=== PATIENT | male | born 1970 | race Caucasian/White ===

== ENCOUNTER 2016-12-29 01:43 | Emergency (ER) | payer OTHER ==
[2016-12-29 02:13] VITALS: BP 132/87; TEMP 97.9
--- NOTE | 2016-12-29 02:15 | C.PDOC ---
History Of Present Illness Patient presents to the emergency room with complaints of left ankle pain that started today. Patient reports that he may have sprained the left ankle while putting on a boot. Patient denies any other pain or any other complaints. Chief Complaint (Nursing): Lower Extremity Problem/Injury History Per: Patient History/Exam Limitations: no limitations Onset/Duration Of Symptoms: Hrs Current Symptoms Are (Timing): Still Present Severity: Mild Pain Scale Rating Of: 4 Recent travel outside of the [place]: No Past Medical History Reviewed: Historical Data, Nursing Documentation, Vital Signs Vital Signs: Last Vital Signs Temp 97.9 F 12/29/16 02:09 Pulse 78 12/29/16 02:09 Resp 14 12/29/16 02:09 BP 132/87 12/29/16 02:09 Pulse Ox 97 12/29/16 02:17 Family History: States: Unknown Family Hx - Social History Hx Alcohol Use: No Hx Substance Use: No - Immunization History Hx Tetanus Toxoid Vaccination: Yes Hx Influenza Vaccination: Yes Hx Pneumococcal Vaccination: Yes Review Of Systems Constitutional: Negative for: Fever, Chills Gastrointestinal: Negative for: Nausea, Vomiting, Diarrhea Musculoskeletal: Positive for: Foot Pain (Left ankle pain). Negative for: Leg Pain Neurological: Negative for: Weakness, Numbness Physical Exam - Physical Exam Appears: Non-toxic Skin: Warm, Dry Extremity: Normal ROM, Tenderness (Diffuse left ankle tenderness), Capillary Refill (Good cap refill < 2 sec), No Deformity, No Swelling Pulses: Left Dorsalis Pedis: Normal, Right Dorsalis Pedis: Normal Neurological/Psych: Oriented x3, Normal Speech Gait: Steady ED Course And Treatment O2 Sat by Pulse Oximetry: 97 Pulse Ox Interpretation: Normal Reevaluation Time: 03:45 Reassessment Condition: Improved Disposition Counseled Patient/Family Regarding: Studies Performed, Diagnosis, Need For Followup, Rx Given - Disposition Referrals: Manoj Arndt DPM [Staff Provider] - Disposition: HOME/ ROUTINE Disposition Time: 03:45 Condition: FAIR Additional Instructions: please use 800 mg motrin every 8 hours Instructions: Ankle Sprain (ED), Gout (ED) - Clinical Impression Clinical Impression: Joint pain, Ankle sprain, Gout - Scribe Statement The provider has reviewed the documentation as recorded by the Oscar Villafana Provider Scribe Attestation: All medical record entries made by the Scribe were at my direction and personally dictated by me. I have reviewed the chart and agree that the record accurately reflects my personal performance of the history, physical exam, medical decision making, and the department course for this patient. I have also personally directed, reviewed, and agree with the discharge instructions and disposition.
[2016-12-29 03:52] VITALS: PULSE 76; RESP 18; O2SAT 99
== END 2016-12-29 03:50 | disposition home or self-care (01) ==
LOC: C.ER 01:43
DX: S93.402A Sprain of unspecified ligament of left ankle, initial encounter (principal); X58.XXXA Exposure to other specified factors, initial encounter; M10.9 Gout, unspecified; M25.572 Pain in left ankle and joints of left foot

== ENCOUNTER 2017-05-16 22:28 | Emergency (ER) | payer OTHER ==
[2017-05-16 22:42] VITALS: BP 167/106; PULSE 88; RESP 20; TEMP 98.2; O2SAT 99
--- NOTE | 2017-05-16 23:02 | C.PDOC ---
History Of Present Illness 47 yo male w/o significant PMHx come in for evaluation of randomly found HTN early today. Otherwise, pt denies any active complaints, denies previous hx of HTN. Pt denies headache, dizziness, visual changes, focal deficits, neck pain, CP, SOB, dyspnea, diaphoresis, palpitation, abd. pain, N/V, denies edema. Ambulate to ED for evaluation, not in any apparent distress. (Carri Chun) History Per: Patient Time Seen by Provider: 05/16/17 22:44 Chief Complaint (Nursing): High Blood Pressure Past Medical History Reviewed: Historical Data, Nursing Documentation, Vital Signs - Medical History PMH: No Chronic Diseases Surgical History: No Surg Hx Family History: States: No Known Family Hx - Social History Hx Tobacco Use: Yes (occasional) Hx Alcohol Use: No Hx Substance Use: No - Immunization History Hx Tetanus Toxoid Vaccination: Yes Hx Influenza Vaccination: Yes Hx Pneumococcal Vaccination: Yes Vital Signs: Last Vital Signs Temp 98.2 F 05/16/17 22:39 Pulse 88 05/16/17 22:39 Resp 20 05/16/17 22:39 BP 167/106 H 05/16/17 22:39 Pulse Ox 99 05/17/17 00:27 Review Of Systems Except As Marked, All Systems Reviewed And Found Negative. Constitutional: Negative for: Fever, Chills Eyes: Negative for: Vision Change ENT: Negative for: Throat Pain Cardiovascular: Negative for: Chest Pain, Palpitations, Orthopnea, Paroxysmal Noc. Dyspnea, Edema, Light Headedness Respiratory: Negative for: Cough, Shortness of Breath, SOB with Excertion, Pleuritic Pain, Wheezing Gastrointestinal: Negative for: Nausea, Vomiting, Abdominal Pain, Diarrhea Genitourinary: Negative for: Dysuria, Incontinence Musculoskeletal: Negative for: Neck Pain, Back Pain Skin: Negative for: Rash Neurological: Negative for: Weakness, Numbness, Altered Mental Status, Headache , Dizziness Physical Exam - Physical Exam Appears: Well, No Acute Distress Skin: Normal Color, Warm, Dry, No Rash Head: Atraumatic, Normacephalic Eye(s): bilateral: PERRL Nose: No Flaring, No Discharge Oral Mucosa: Moist, No Drooling Throat: No Erythema, No Exudate, No Drooling Neck: Supple, Other ((-) carotid bruits) Cardiovascular: Rhythm Regular, No Friction Rub, No Murmur, No JVD Respiratory: No Decreased Breath Sounds, No Accessory Muscle Use, No Rales, No Rhonchi, No Stridor, No Wheezing Gastrointestinal/Abdominal: Soft, No Tenderness, No Distention, No Guarding Back: No CVA Tenderness, No Vertebral Tenderness Extremity: No Pedal Edema, No Deformity, No Swelling Neurological/Psych: Oriented x3, Normal Speech, Normal Motor, Normal Sensation, Normal Reflexes ED Course And Treatment ECG: Interpreted By Me, Viewed By Me Interpretation Of ECG: SR@77/min, LAD, T wave inversion in III, AVF, no acute ST -T changes. No old study available. O2 Sat by Pulse Oximetry: 99 Pulse Ox Interpretation: Normal - Radiology CXR: Interpreted by Me, Viewed By Me CXR Interpretation: Yes: No Acute Disease Progress Note: Case discussed with ED attending , results review. Recommed Rx: HCTZ and outpt f/u. On re-eavluation, pt is afebrile, hemodynamicaly stable. NOn-toxic. PulseOx 99% rA. neck: Supple, (-) JVD, (-) carotid bruits. Lungs: CTA B/L, BS equal B/L. CVS: (+)S1S2, reg. Abd: benign. Neuorlogical yintact. CXR, EKG review- normal study. Pt has clinical findings c/w HTN, asymptomatic. Pt advised and ref. to f/u with PMD in 2-3 days for re-eavl. return if any new changes. Disposition Counseled Patient/Family Regarding: Diagnosis, Need For Followup, Rx Given - Disposition Disposition Time: 00:01 - Disposition Referrals: [facility] [Outside] Renee Puga MD [Staff Provider] - Disposition: HOME/ ROUTINE Condition: STABLE Additional Instructions: Take medication as prescribed Follow up with PMD in 2-3 days for re-evaluation. Return to ED if any worsening or new changes. Prescriptions: Hydrochlorothiazide [Microzide] 12.5 mg PO BID #30 cap Instructions: Hypertension (ED) Forms: [employer] (Sami) - Clinical Impression Clinical Impression: HTN (hypertension) Addendum Addendum: 05/17/17 17:58 message left on pt's phone to return to ED for ct chest due to abnormality seen on cxr in ed. (Ruthy Fallon)
--- NOTE | 2017-05-17 08:24 | RAD ---
HISTORY: Cough COMPARISON: None available. TECHNIQUE: Chest PA and lateral FINDINGS: LUNGS: No focal consolidation. Please note that chest x-ray has limited sensitivity for the detection of pulmonary masses. PLEURA: No significant pleural effusion identified. No definite pneumothorax . CARDIOVASCULAR: Heart size appears within normal limits. Mild prominence of the mediastinum may be the result of tortuous aorta and slight patient obliquity. Alternatives including adenopathy cannot be excluded. OSSEOUS STRUCTURES: No acute osseous abnormality identified. VISUALIZED UPPER ABDOMEN: Unremarkable. OTHER FINDINGS: None. IMPRESSION: No focal consolidation, significant pleural effusion, or definite pneumothorax identified. Mild prominence of the mediastinum may be the result of tortuous aorta and slight patient obliquity. Alternatives including adenopathy cannot be excluded. Correlate clinically. Study has been marked for PA review.
--- NOTE | 2017-05-19 17:33 | CARD ---
APPROVED REPORT EKG Measurement Heart [id number] <Conclusion> Normal sinus rhythm Normal ECG
== END 2017-05-17 00:29 | disposition home or self-care (01) ==
LOC: C.ER 22:28
DX: I10 Essential (primary) hypertension (principal); Z72.0 Tobacco use

== ENCOUNTER 2017-05-18 10:09 | Emergency (ER) | payer OTHER ==
--- NOTE | 2017-05-18 10:54 | C.PDOC ---
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 He was asymptomatic at that time. A CXR was performed, which was later reread by radiologist in morning and patient was contacted by "Call back PA" to return to the ER for a lung CT. XR read was: Accession No. 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 TECHNIQUE: Chest PA and lateral FINDINGS: LUNGS: No focal consolidation. Please note that chest x-ray has limited sensitivity for the detection of pulmonary masses. PLEURA: No significant pleural effusion identified. No definite pneumothorax . CARDIOVASCULAR: Heart size appears within normal limits. Mild prominence of the mediastinum may be the result of tortuous aorta and slight patient obliquity. Alternatives including adenopathy cannot be excluded. OSSEOUS STRUCTURES: No acute osseous abnormality identified. VISUALIZED UPPER ABDOMEN: Unremarkable. OTHER FINDINGS: None. IMPRESSION: No focal consolidation, significant pleural effusion, or definite pneumothorax identified. Mild prominence of the mediastinum may be the result of tortuous aorta and slight patient obliquity. Alternatives including adenopathy cannot be excluded. Correlate clinically. Study has been marked for PA review. Patient denies any symptoms at this time. Time Seen by Provider: 05/18/17 10:26 Chief Complaint (Nursing): High Blood Pressure Past Medical History Vital Signs: Last Vital Signs Temp 98.4 F 05/18/17 10:12 Pulse 77 05/18/17 10:28 Resp 16 05/18/17 10:12 BP 135/84 05/18/17 10:28 Pulse Ox 98 05/18/17 10:54 - Medical History PMH: HTN Family History: States: No Known Family Hx - Social History Hx Tobacco Use: Yes (occasional) Hx Alcohol Use: Yes Hx Substance Use: No - Immunization History Hx Tetanus Toxoid Vaccination: Yes Hx Influenza Vaccination: Yes Hx Pneumococcal Vaccination: Yes Review Of Systems Except As Marked, All Systems Reviewed And Found Negative. Constitutional: Negative for: Fever Cardiovascular: Negative for: Chest Pain Respiratory: Negative for: Shortness of Breath Gastrointestinal: Negative for: Vomiting Physical Exam - Physical Exam Appears: No Acute Distress Skin: Normal Color Head: Normacephalic Oral Mucosa: Moist Neck: Normal ROM Chest: Symmetrical Cardiovascular: Rhythm Regular Respiratory: No Accessory Muscle Use Extremity: No Tenderness, No Swelling Pulses: Left Radial: Normal, Right Radial: Normal Neurological/Psych: Normal Speech, Normal Cognition Gait: Steady ED Course And Treatment O2 Sat by Pulse Oximetry: 98 Medical Decision Making Medical Decision Making: Discussed XR findings with patient, offered CT, but informed that there is likely no indication for CT at this time and patient was comfortable to forego CT. I gave patient report instead, and he states he will show it to primary care when he finds one. In the mean time, the patient has been started on HCTZ 12.5, which patient states he will go fill now. I gave one dose here. Disposition - Disposition Disposition: HOME/ ROUTINE Disposition Time: 10:53 Condition: STABLE Instructions: Lymphadenopathy (ED) Forms: [employer] (Faroese) - Clinical Impression Clinical Impression: Encounter for medical assessment
[2017-05-18 11:11] VITALS: BP 147/86; PULSE 84; RESP 18; TEMP 98.3; O2SAT 100
== END 2017-05-18 11:10 | disposition home or self-care (01) ==
LOC: C.ER 10:09
DX: Z04.8 Encounter for examination and observation for other specified reasons (principal); I10 Essential (primary) hypertension; F17.210 Nicotine dependence, cigarettes, uncomplicated

== ENCOUNTER 2018-02-11 02:04 | Emergency (ER) | payer OTHER ==
[2018-02-11 02:19] VITALS: RESP 16; TEMP 98.2
--- NOTE | 2018-02-11 02:51 | C.PDOC ---
History Of Present Illness 48 year old male with PMHx of HTN presents to the ED for evaluation of elevated BP. 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 Patient is asymptomatic at this time. Patient has not taken his HTN mediations for more than 2 months. Patient denies headache, blurry vision, nausea, vomiting, SOB, CP , palpitations, weakness, numbness. Time Seen by Provider: 02/11/18 02:20 Chief Complaint (Nursing): High Blood Pressure History Per: Patient History/Exam Limitations: no limitations Onset/Duration Of Symptoms: Days Current Symptoms Are (Timing): Still Present Associated Symptoms: Chest Pain Quality Of Symptoms: Asymptomatic Exacerbating Factor(s): Pos: Recently Missed Doses Of Medication Recent travel outside of the [place]: No Additional History Per: Patient Past Medical History Reviewed: Historical Data, Nursing Documentation, Vital Signs Vital Signs: Last Vital Signs Temp 98.2 F 02/11/18 02:17 Pulse 77 02/11/18 03:08 Resp 16 02/11/18 03:08 BP 126/88 02/11/18 03:08 Pulse Ox 97 02/11/18 04:26 - Medical History PMH: HTN Surgical History: No Surg Hx Family History: States: Unknown Family Hx - Social History Hx Tobacco Use: Yes (occasional) Hx Alcohol Use: Yes Hx Substance Use: No - Immunization History Hx Tetanus Toxoid Vaccination: Yes Hx Influenza Vaccination: Yes Hx Pneumococcal Vaccination: Yes Review Of Systems Constitutional: Negative for: Fever, Chills Cardiovascular: Negative for: Chest Pain, Palpitations Respiratory: Negative for: Shortness of Breath Gastrointestinal: Negative for: Nausea, Vomiting Neurological: Negative for: Weakness, Numbness, Headache, Dizziness Physical Exam - Physical Exam Appears: Non-toxic, No Acute Distress Skin: Normal Color, Warm, Dry Head: Atraumatic, Normacephalic Eye(s): bilateral: Normal Inspection, PERRL Oral Mucosa: Moist Neck: Normal ROM, Supple Chest: Symmetrical, No Tenderness Cardiovascular: Rhythm Regular, No Murmur Respiratory: Normal Breath Sounds, No Rhonchi, No Wheezing Gastrointestinal/Abdominal: Soft, No Tenderness Extremity: Normal ROM, No Pedal Edema Neurological/Psych: Oriented x3, Normal Speech Gait: Steady ED Course And Treatment ECG: Interpreted By Me, Viewed By Me ECG Interpretation: Normal Rate From EC (BPM) O2 Sat by Pulse Oximetry: 97 (ON RA) Pulse Ox Interpretation: Normal Progress Note: On reassessment, patient is resting comfortably, and is in no acute distress. Patient was instructed to follow up with physician/clinic today for further evaluation and /or BP manangement. Patient's BP on reevaluation has much improved. 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 - Scribe Statement The provider has reviewed the documentation as recorded by the Scribe Pradeep Prince All medical record entries made by the Scribe were at my direction and personally dictated by me. I have reviewed the chart and agree that the record accurately reflects my personal performance of the history, physical exam, medical decision making, and the department course for this patient. I have also personally directed, reviewed, and agree with the discharge instructions and disposition.
[2018-02-11 03:09] VITALS: BP 126/88; PULSE 77
[2018-02-11 03:43] VITALS: O2SAT 97
--- NOTE | 2018-02-14 17:24 | CARD ---
APPROVED REPORT EKG Measurement Heart [id number] [id number] <Conclusion> Normal sinus rhythm Normal ECG
== END 2018-02-11 03:10 | disposition home or self-care (01) ==
LOC: C.ER 02:04
DX: I10 Essential (primary) hypertension (principal)